=== PATIENT | male | born 1965 | race Caucasian/White ===

== ENCOUNTER → 2017-08-29 | Outpatient (CLI) | payer OTHER, BC ==
--- NOTE | 2017-08-29 15:20 | DIAGNOSTIC IMAGING REPORT ---
MRI OF THE LEFT ANKLE WITHOUT CONTRAST CLINICAL HISTORY: Persistent left ankle pain following injury. COMPARISON STUDY: None. TECHNIQUE: Utilizing a 1.5 Sherry magnet and dedicated coil, multiplanar, multiecho imaging of the left ankle was performed without intravenous or intraarticular contrast. FINDINGS: 11 of the left ankle is anatomic. There is minimal subchondral signal abnormality within the lateral talar dome. This suggests a tiny osteochondral defect which appears stable. Subchondral cystic change is noted within the talus and the calcaneus related to arthritis. The Achilles tendon and plantar fascia are intact. There is no evidence for fracture. There is no suspicious marrow replacement. There is no joint effusion or loose body. There is subtle increased signal within the posterior tibial tendon immediately distal to the medial malleolus which suggests mild tendinopathy. There is no abnormality of the extensor or peroneal tendons. There is slight increased fluid within the tendon sheath for the flexor digitorum. IMPRESSION: 1. No evidence for fracture. 2. Slight increased signal within the posterior tibial tendon which suggests minimal tendinopathy. 3. Increased fluid within the tendon sheath for the flexor digitorum which suggests tenosynovitis. 4. Subchondral cystic change within the talus and calcaneus consistent with osteoarthritis. 5. Tiny osteochondral abnormality of the lateral talar dome which suggests a tiny osteochondral defect. Electronically signed by: Jonatan Amador M.D. 08/29/2017 3:18 PM Dictated Date/Time: 08/29/2017 3:09 PM
== END | disposition home or self-care (01) ==
LOC: C.MRIBC 13:45
PROVIDERS: ATTEND Orthopaedic Surgery
DX: M25.572 Pain in left ankle and joints of left foot (principal); M67.972 Unspecified disorder of synovium and tendon, left ankle and foot

== ENCOUNTER 2021-06-04 08:38 | Inpatient (IN) ==
--- NOTE | 2021-06-04 08:44 | Emergency Department Note ---
Impression & Plan Hypoxia, Asthma, Pneumonia due to COVID-19 virus, Acute dehydration, Nausea, Hypocalcemia ED Provider Note NAME: MARCUS GA AGE: 55 SEX: M : 1965 ARRIVES VIA: Ambulance INFORMANT: Patient, ED PROVIDER(S): Stephan Merchant MD Chief Complaint: Shortness of breath HPI: Patient does complain of shortness of breath and has been symptomatic for Covid since 2 Fridays ago but tested positive last Friday. The patient had been cleared for work initially and [facility] and he was noted to be hypoxic and was referred here for further evaluation and treatment. Patient does have a known history of asthma. The patient denies any chest pains but has had associated shortness of breath nonproductive cough, nausea without vomiting and diarrhea. Patient has had decreased p.o. intake. Patient had used an inhaler at home without significant improvement in symptoms. Patient denies any abdominal pain or headache. Patient is not vaccinated for COVID-19. The patient did receive his seasonal flu shot. Patient symptoms of gotten progressively worse over these last 10 to 11 days. Patient has not felt improved with anything he is tried at home. No prior history of heart or lung disease. The patient is a non-smoker. Patient denies any history of DVT or PE. ROS: See HPI for pertinent positives and negatives. A total of 10 systems were reviewed and otherwise negative. Past medical history: See below Surgical history: See below Social history: See below Physical Exam: GENERAL: Mildly ill in appearance, NAD, wearing glasses, wearing a mask, non- toxic. EYE EXAM: Normal conjunctiva. PERRL, no anisocoria and EOM's grossly intact w/o pain. NECK: Supple, no nuchal rigidity, no adenopathy, non-tender. No signs of meningismus. LUNGS: Crackles throughout without any obvious wheezing or rhonchi, normal chest wall mechanics. HEART: Tachycardic and regular, no MRG. ABDOMEN: Abdomen soft, non-tender, normo-active bowel sounds, no masses, no rebound or guarding. BACK: No CVA TTP. SKIN: No rashes and no bruising. UPPER EXTREMITIES: Upper extremities are grossly normal. LOWER EXTREMITIES: Grossly normal, no edema. Negative Homans' sign bilaterally. NEURO EXAM: A&O x3, cranial nerves II-XII grossly intact, normal speech, moves all 4 extremities on command w/o issue. Differential diagnoses: Reactive airway disease, pneumonia, pneumothorax, COPD, CHF, infections, cardiac ischemia, pulmonary embolism, musculoskeletal, gastrointestinal, as well as other pathologies. Course: Patient was seen and evaluated the bedside. Full history physical exam was perf ormed. EKG interpreted by me Sinus tachycardia, rate of 108, normal intervals, normal axis, T wave inversion in lead III, no obvious ST elevations Imaging Studies: See Below Cardiac monitoring: An order was placed for continuous cardiac monitoring. The monitor shows a rate of 102 with tachycardic and regular rhythm. MDM: Patient was seen due to concern for shortness of breath. The patient did have crackles throughout was noted to be hypoxic. The patient was poor put on nasal cannula her dexamethasone and IV fluids given the patient's nausea diarrhea decreased p.o. intake. Blood work was obtained and a chest x-ray was completed. Chest ray shows viral type pneumonia. Blood work shows normal white count H&H and platelet count. The patient does have lymphocytopenia which be consistent with the patient's viral type illness. Patient does have creat of 1.5. Mild hypocalcemia noted. Troponin not detectable. Covid positive negative for flu and RSV. Procalcitonin is not elevated. I did speak with the on-call hospitalist Glenys Nuñez PA-C and the patient was admitted by Dr. Otero. Critical Care: I have personally spent 37 minutes of critical care time in direct management of this patient. This includes bedside care, interpretation of diagnostic studies, and testing, discussion with consultants, patient, and family members, and other require inpatient management activities. This 37 minutes is in excess of all separately billable procedures. Past Med/Surg History Medical History Asthma HTN (hypertension) Surgical History History of ear surgery History of umbilical hernia repair Family History Mother Alive and well Father Myocardial infarction 50s Social History Smoking Status: Never smoker Hx Alcohol Use: No Hx Substance Use: No Preferred Language: Macedonian marital status: Current Living Situation: Spouse and Family Feels Safe at Home: Yes Immunizations: Unvaccinated for COVID-19 Allergies Allergies Allergy/AdvReac Type Severity Reaction Status Date / Time shellfish derived Allergy Mild difficulty Verified 06/04/21 09:29 breathing Home Meds Home Medications Medication Instructions Recorded Confirmed budesonide-formoterol HFA 160 2 puffs INH BID 05/10/19 06/04/21 mcg-4.5 mcg/actuation aerosol inhaler (Symbicort) cetirizine 10 mg tablet (Zyrtec) 10 mg PO DAILY 05/10/19 06/04/21 ipratropium 20 mcg-albuterol 100 1 puffs INH Q6H 05/10/19 06/04/21 mcg/actuation mist for inhalation (Combivent Respimat) omeprazole 20 mg capsule,delayed 20 mg PO DAILY 05/10/19 06/04/21 release albuterol sulfate 90 mcg/actuation 2 puff INHALATION Q4H PRN 06/04/21 06/04/21 aerosol inhaler (ProAir HFA) atorvastatin 20 mg tablet 10 mg PO DAILY 06/04/21 06/04/21 lisinopril 40 mg tablet 40 mg PO DAILY 06/04/21 06/04/21 Results & Data (ED) Vital Signs Vital Signs - 24 hr 06/04/21 08:38 06/04/21 08:53 06/04/21 08:56 Temperature 37.5 C Temperature Source Oral Pulse Rate 110 H 107 H 110 H Pulse Rate [Radial] Pulse Rate from SpO2 Sensor 108 H Pulse Rhythm Regular Pulse Rhythm [Radial] Pulse Strength [Radial] Respiratory Rate 34 H 32 H 34 H Respiratory Effort / Characteristics Non-Labored Respiratory Depth Normal Respiratory Pattern Regular Blood Pressure 127/86 127/86 Blood Pressure [Left Arm] Blood Pressure Mean 99 99 Blood Pressure Mean [Left Arm] Pulse Oximetry 88 L 92 92 Oxygen Delivery Method Nasal Cannula Nasal Cannula Oxygen Flow Rate 0 4 Sepsis Recent Fever Within 48 Hours No Sepsis New/Unexplained Change in Mental Status No Sepsis Action Taken by Nursing Physician Notified Oxygen Flow Rate - Titration 4 Pulse Oximetry Post Tiitration 92 06/04/21 09:00 06/04/21 09:16 06/04/21 09:30 Temperature Temperature Source Pulse Rate 108 H 100 H Pulse Rate [Radial] Pulse Rate from SpO2 Sensor 109 H 98 H Pulse Rhythm Pulse Rhythm [Radial] Pulse Strength [Radial] Respiratory Rate 36 H 22 34 H Respiratory Effort / Characteristics Non-Labored Spontaneous Respiratory Depth Normal Respiratory Pattern Regular Blood Pressure Blood Pressure [Left Arm] Blood Pressure Mean Blood Pressure Mean [Left Arm] Pulse Oximetry 92 92 89 L Oxygen Delivery Method Nasal Cannula Oxygen Flow Rate 4 Sepsis Recent Fever Within 48 Hours Sepsis New/Unexplained Change in Mental Status Sepsis Action Taken by Nursing Oxygen Flow Rate - Titration Pulse Oximetry Post Tiitration 06/04/21 10:00 06/04/21 10:30 06/04/21 11:00 Temperature Temperature Source Pulse Rate 97 H 96 H Pulse Rate [Radial] 89 Pulse Rate from SpO2 Sensor 97 H 96 H Pulse Rhythm Pulse Rhythm [Radial] Regular Pulse Strength [Radial] Normal Respiratory Rate 25 H 34 H 20 Respiratory Effort / Characteristics Non-Labored Respiratory Depth Normal Respiratory Pattern Regular Blood Pressure 136/89 128/93 Blood Pressure [Left Arm] 117/82 Blood Pressure Mean 104 104 Blood Pressure Mean [Left Arm] 93 Pulse Oximetry 95 94 94 Oxygen Delivery Method Nasal Cannula Nasal Cannula Oxygen Flow Rate 4 4 Sepsis Recent Fever Within 48 Hours Sepsis New/Unexplained Change in Mental Status Sepsis Action Taken by Nursing Oxygen Flow Rate - Titration Pulse Oximetry Post Tiitration Home Medications Current Medication List: was personally reviewed by me Laboratory Data Attestation: I reviewed the patient's lab results. Result diagrams: 06/04/21 09:00 06/04/21 09:00 Lab Results 06/04/21 06/04/21 06/04/21 Range/Units 09:00 09:00 09:00 WBC 5.45 (4.8-10.8) K/uL RBC 5.14 (4.7-6.1) M/uL Hgb 16.5 (14.0-18.0) g/dL Hct 48.2 (42-52) % MCV 93.8 (80-100) fL MCH 32.1 (25-34) pg MCHC 34.2 (32-36) g/dL RDW Std Deviation 45.2 (36.4-46.3) fL RDW Coeff of Aliya 13.1 (11.5-14.5) % Plt Count 143 (130-400) K/uL MPV 10.9 H (7.4-10.4) fL Immature Gran % (Auto) 0.2 % Neut % (Auto) 73.5 % Lymph % (Auto) 13.6 % [place] % (Auto) 12.5 % Eos % (Auto) 0.0 % Baso % (Auto) 0.2 % Neut # (Auto) 4.01 (1.4-6.5) K/uL Lymph # (Auto) 0.74 L (1.2-3.4) K/uL [place] # (Auto) 0.68 H (0.11-0.59) K/uL Eos # (Auto) 0.00 (0-0.5) K/uL Baso # (Auto) 0.01 (0-0.2) K/uL Immature Gran # (Auto) 0.01 (0.00-0.02) K/uL ESR (0-20) mm/hr Sodium 142 (136-145) mmol/L Potassium 3.7 (3.5-5.1) mmol/L Chloride 111 H (98-107) mmol/L Carbon Dioxide 23 (21-32) mmol/L Anion Gap 7.0 (3-11) BUN 21 H (7-18) mg/dl Creatinine 1.53 H (0.6-1.4) mg/dl Est Cr Clr Drug Dosing 71.0 ml/min Est GFR ( Amer) 58.9 ml/min Est GFR (Non-Af Amer) 50.8 ml/min BUN/Creatinine Ratio 13.5 (10-20) Glucose 118 H (70-99) mg/dl Calcium 8.0 L (8.5-10.1) mg/dl Total Bilirubin 0.5 (0.2-1) mg/dl AST 47 H (15-37) U/L ALT 32 (12-78) Alkaline Phosphatase 70 (45-117) U/L Troponin I < 0.015 (0-0.045) ng/ml C-Reactive Protein (0-0.29) mg/dl NT-Pro-B Natriuret Pep 37 (0-900) pg/ml Total Protein 7.2 (6.4-8.2) gm/dl Albumin 3.1 L (3.4-5.0) gm/dl Globulin 4.1 H (2.5-4.0) gm/dl Albumin/Globulin Ratio 0.8 L (0.9-2) Procalcitonin (0-0.5) ng/ml SARS-CoV-2 (PCR) POSITIVE A* (Negative) Influenza Type A (PCR) Negative (Neg) Influenza Type B (PCR) Negative (Neg) RSV (RT-PCR) Negative (Neg) 06/04/21 06/04/21 06/04/21 Range/Units 09:00 09:00 09:00 WBC (4.8-10.8) K/uL RBC (4.7-6.1) M/uL Hgb (14.0-18.0) g/dL Hct (42-52) % MCV (80-100) fL MCH (25-34) pg MCHC (32-36) g/dL RDW Std Deviation (36.4-46.3) fL RDW Coeff of Aliya (11.5-14.5) % Plt Count (130-400) K/uL MPV (7.4-10.4) fL Immature Gran % (Auto) % Neut % (Auto) % Lymph % (Auto) % Flag[place] % (Auto) % Eos % (Auto) % Baso % (Auto) % Neut # (Auto) (1.4-6.5) K/uL Lymph # (Auto) (1.2-3.4) K/uL [place]ler # (Auto) (0.11-0.59) K/uL Eos # (Auto) (0-0.5) K/uL Baso # (Auto) (0-0.2) K/uL Immature Gran # (Auto) (0.00-0.02) K/uL ESR 38 H (0-20) mm/hr Sodium (136-145) mmol/L Potassium (3.5-5.1) mmol/L Chloride (98-107) mmol/L Carbon Dioxide (21-32) mmol/L Anion Gap (3-11) BUN (7-18) mg/dl Creatinine (0.6-1.4) mg/dl Est Cr Clr Drug Dosing ml/min Est GFR ( Amer) ml/min Est GFR (Non-Af Amer) ml/min BUN/Creatinine Ratio (10-20) Glucose (70-99) mg/dl Calcium (8.5-10.1) mg/dl Total Bilirubin (0.2-1) mg/dl AST (15-37) U/L ALT (12-78) Alkaline Phosphatase (45-117) U/L Troponin I (0-0.045) ng/ml C-Reactive Protein 8.03 H (0-0.29) mg/dl NT-Pro-B Natriuret Pep (0-900) pg/ml Total Protein (6.4-8.2) gm/dl Albumin (3.4-5.0) gm/dl Globulin (2.5-4.0) gm/dl Albumin/Globulin Ratio (0.9-2) Procalcitonin 0.07 (0-0.5) ng/ml SARS-CoV-2 (PCR) (Negative) Influenza Type A (PCR) (Neg) Influenza Type B (PCR) (Neg) RSV (RT-PCR) (Neg) Administered Medications Discontinued Medications Dexamethasone Sodium Phosphate (DexamethasonePf 10 Mg/Ml Vial) 6 mg IV NOW ONE Stop: 06/04/21 08:57 Last Admin: 06/04/21 09:07 Dose: 6 mg Documented by: [id number] Sodium Chloride (Nss 1000ml) 1,000 mls @ 999 mls/hr IV .Q1H1M ALVINO Stop: 06/04/21 10:00 Last Infusion: 06/04/21 10:37 Dose: 0 mls/hr Documented by: [id number] Admin: 06/04/21 09:05 Dose: 999 mls/hr Documented by: [id number] Ondansetron HCl (Ondansetron Inj 2 Mg/Ml 2 Ml Vial) 4 mg IV NOW STA Stop: 06/04/21 08:58 Last Admin: 06/04/21 09:05 Dose: 4 mg Documented by: [id number] Imaging Data Radiologist's Impression: Chest X-Ray 06/04/21 08:56 XR chest 1V portable CLINICAL HISTORY: Dyspnea. COMPARISON STUDY: No previous studies for comparison. FINDINGS: Lung volumes are normal. There is no pneumothorax or pleural effusion. Moderate multifocal airspace opacities within the lungs are noted. There is bor derline enlargement of the cardiac silhouette. There is no evidence for pulmonary edema. IMPRESSION: Moderate multifocal bilateral airspace opacities suggestive of viral pneumonia. Radiographic follow-up to ensure resolution is recommended. ACT 112: Negative or not required by law. Electronically signed by: Jonatan Amador M.D. 06/04/2021 9:38 AM Discharge Plan Visit Data Chief Complaint: Shortness of Breath/Dyspnea ED Provider: Stephan Merchant Discharge Problem: Hypoxia, Asthma, Pneumonia due to COVID-19 virus, Acute dehydration, Nausea, H ypocalcemia Patient Disposition: Admitted As Inpatient Forms Stand Alone Forms: [facility] Prescriptions Prescriptions: No Action omeprazole 20 mg capsule,delayed release(DR/EC) 20 mg PO DAILY RF: 0 Symbicort 160-4.5 mcg/actuation HFA aerosol inhaler 2 puffs INH BID RF: 0 Combivent Respimat 20-100 mcg/actuation mist 1 puffs INH Q6H RF: 0 cetirizine [Zyrtec] 10 mg tablet 10 mg PO DAILY RF: 0 albuterol sulfate [ProAir HFA] 90 mcg/actuation HFA aerosol inhaler 2 puff INHALATION Q4H PRN (Reason: Shortness Of Breath) RF: 0 lisinopril 40 mg tablet 40 mg PO DAILY RF: 0 atorvastatin 20 mg tablet 10 mg PO DAILY RF: 0 Referrals Referrals: Tang Rivera MD [Outside Practitioners] -
[2021-06-04] MEDS ORDERED: dexAMETHasone**PF** 10 MG/ML VIAL IV ONE (08:56)
[2021-06-04] MEDS ORDERED: ONDANSETRON INJ 2 MG/ML 2 ML VIAL IV STA (08:57)
[2021-06-04] MEDS ORDERED: SODIUM CHLORIDE 0.9% 1000ML 1,000 ML IV SCH ×2 (09:00→15:30)
[2021-06-04 09:33] LABS: Hematocrit (blood only) 48.2 % (42-52); Hemoglobin 16.5 g/dL (14.0-18.0); Mean Corpuscular Hemoglobin 32.1 pg (25-34); Mean Corpuscular Hgb Conc 34.2 g/dL (32-36); Mean Corpuscular Volume 93.8 fL (80-100); Mean Platelet Volume 10.9 fL (7.4-10.4); Platelet Count 143 K/uL (130-400); RDW Coefficient of Variation 13.1 % (11.5-14.5); RDW Standard Deviation 45.2 fL (36.4-46.3); Red Blood Count 5.14 M/uL (4.7-6.1); White Blood Count 5.45 K/uL (4.8-10.8)
--- NOTE | 2021-06-04 09:40 | XRay Report ---
XR chest 1V portable CLINICAL HISTORY: Dyspnea. COMPARISON STUDY: No previous studies for comparison. FINDINGS: Lung volumes are normal. There is no pneumothorax or pleural effusion. Moderate multifocal airspace opacities within the lungs are noted. There is borderline enlargement of the cardiac silhoue tte. There is no evidence for pulmonary edema. IMPRESSION: Moderate multifocal bilateral airspace opacities suggestive of viral pneumonia. Radiogra [facility] follow-up to ensure resolution is recommended. ACT 112: Negative or not required by law. Electronically signed by: Jonatan Amador M.D. 06/04/2021 9:38 AM
[2021-06-04 09:55] LABS: Alanine Aminotransferase 32 (12-78); Albumin Level 3.1 gm/dl (3.4-5.0); Aspartate Aminotransferase 47 U/L (15-37); BUN Creatinine Ratio 13.5 (10-20); Blood Urea Nitrogen 21 mg/dl (7-18); Carbon Dioxide 23 mmol/L (21-32); Chloride 111 mmol/L (98-107); Est GFR (African American) 58.9 ml/min; Est GFR (Non-African American) 50.8 ml/min; Glucose 118 mg/dl (70-99); Potassium 3.7 mmol/L (3.5-5.1); Sodium 142 mmol/L (136-145)
[2021-06-04 09:57] LABS: Basophils # (auto) 0.01 K/uL (0-0.2); Basophils % (auto) 0.2 %; Immature Granulocytes # (auto) 0.01 K/uL (0.00-0.02); Immature Granulocytes % (auto) 0.2 %; Lymphocytes # (auto) 0.74 K/uL (1.2-3.4); Lymphocytes % (auto) 13.6 %; Monocytes # (auto) 0.68 K/uL (0.11-0.59); Monocytes % (auto) 12.5 %; Neutrophils # (auto) 4.01 K/uL (1.4-6.5); Neutrophils % (auto) 73.5 %
[2021-06-04 10:00] LABS: Albumin Globulin Ratio 0.8 (0.9-2); Alkaline Phosphatase 70 U/L (45-117); Bilirubin,Total 0.5 mg/dl (0.2-1); Globulin 4.1 gm/dl (2.5-4.0); NT Pro B Type Natriuretic Pept 37 pg/ml (0-900); Total Protein 7.2 gm/dl (6.4-8.2); Troponin I < 0.015 ng/ml (0-0.045)
[2021-06-04 10:15] LABS: Influenza A virus by PCR Negative (Neg); Influenza B virus by PCR Negative (Neg); RSV by PCR Negative (Neg)
[2021-06-04 10:19] LABS: SARS CoV2 RNA(COVID-19) InHosp POSITIVE (Negative)
--- NOTE | 2021-06-04 11:03 | History & Physical Report ---
Date of Service June 04, 2021 Assessment & Plan (1) Hypoxia: (2) Pneumonia due to COVID-19 virus: (3) Asthma: (4) HTN (hypertension): Plan: Hypoxia Pneumonia due to COVID-19 Admit to PCU IV dexamethasone 6mg Daily Lovenox SQ BID aggressive pulmonary toilet with ISP, flutter valve, Albuterol MDI encouraged self proning and q2h position change no acute asthma exac continue symbicort CRP 8.03, ESR 38, procalcitonin pending He does not meet criteria for remdesivir secondary to duration of symptoms JOCY Unknown baseline, but elevated creatinine 1.53 Likely in setting of poor intake Received 1 hour IV fluid in ED, give additional 1 L gentle Repeat labs in a.m. HTN Hold lisinopril in setting of Resume as able DVT prophylaxis: Lovenox twice daily Dispo: PCU Full code PCP: [place] patient Patient was seen and examined in collaboration with,Dr. Otero, please see addendum History of Present Illness Chief Complaint: Worsening SOB; found to be hypoxic and sent to ED. Primary Care Provider: Elian Truong MD This is a 55-year-old male with significant past medical history of asthma and hypertension who presents to ED secondary to worsening shortness of breath over the last several days and found to be hypoxic at work. Patient initially was diagnosed with Covid 1 week ago. His symptoms however started 12 days ago. He is currently complaining of productive cough of purulent sputum, chills, sweats, shortness of breath, difficulty taking a deep breath, CINTRON, nausea, daily diarrhea and poor intake. He has known sick contacts with family members at home. He is unvaccinated. He denies fever, lightheadedness, dizziness, syncope, chest pain, hemoptysis, emesis, abdominal pain, dysuria, increased urinary frequency with urination, melena or hematochezia. He was to return to work today as his quarantine ended, and when he returned to work he was complaining of shortness of breath, his oxygen level was obtained and found to be hypoxic. He was referred to ED. In ED patient was hypoxic requiring 4 L of oxygen via nasal cannula.His chest x-ray was consistent with moderate multifocal bilateral airspace opacities suggestive of viral pneumonia. His lab work was consistent with JOCY and elevation in creatinine of 1.53. He did receive 6 mg IV dexamethasone as well as 1 L of IV fluid. He currently feels improved since initial presentation; however, is dyspneic even with conversation. Allergies Allergy/AdvReac Type Severity Reaction Status Date / Time shellfish derived Allergy Mild difficulty Verified 06/04/21 09:29 breathing Home Medications Medication Instructions Recorded Confirmed Type budesonide-formoterol HFA 160 2 puffs INH BID 05/10/19 06/04/21 History mcg-4.5 mcg/actuation aerosol inhaler (Symbicort) cetirizine 10 mg tablet (Zyrtec) 10 mg PO DAILY 05/10/19 06/04/21 History ipratropium 20 mcg-albuterol 100 1 puffs INH Q6H 05/10/19 06/04/21 History mcg/actuation mist for inhalation (Combivent Respimat) omeprazole 20 mg capsule,delayed 20 mg PO DAILY 05/10/19 06/04/21 History release albuterol sulfate 90 mcg/actuation 2 puff INHALATION Q4H PRN 06/04/21 06/04/21 History aerosol inhaler (ProAir HFA) atorvastatin 20 mg tablet 10 mg PO DAILY 06/04/21 06/04/21 History lisinopril 40 mg tablet 40 mg PO DAILY 06/04/21 06/04/21 History codeine 10 mg-guaifenesin 100 mg/5 10 ml PO Q6H PRN #120 ml 06/08/21 Rx mL oral liquid Past Med/Surg History Medical History Asthma HTN (hypertension) Surgical History History of ear surgery History of umbilical hernia repair Family History Mother Alive and well Father Myocardial infarction 50s Social History Smoking Status: Never smoker Second Hand Exposure: No; Do You Dip or Chew Tobacco: No; Hx Alcohol Use: No Hx Substance Use: No Preferred Language: Nepali Communication Ability: Effective [employer]alt [employer] Supervisor Required: No Beliefs That Will Affect Care: None marital status: Current Living Situation: Family Other Information That Helps Us Care for You: No Feels Safe at Home: Yes Safety Concerns: Feels Safe At This Time Assistive Devices: Oxygen - Continuous Review of Systems Review of Systems: All systems reviewed & are unremarkable except as noted in HPI & below Physical Exam Physical Exam: Constitutional: WD/WN, vitals as above, NAD, sitting up in bed, pleasant, dyspneic with conversation Head: Normocephalic, Atraumatic Eyes: PERRL, conjunctivae normal, anicteric sclerae ENMT: external ear and nose normal, oropharynx normal Neck: trachea midline, no thyromegaly normal visual inspection Respiratory: normal respiratory effort, no accessory muscle use, 4 years O2 via nasal cannula, harsh cough noted, dyspneic with conversation Cardiovascular: RRR telemetry, no edema Vessels: no JVD or carotid bruit Chest: normal inspection of chest Abdomen: normal bowel sounds, soft, nontender, no hepatosplenomegaly Musculoskeletal: no cyanosis or clubbing, extremities motor strength 5/5 Skin: no rashes, warm and dry normal turgor Neurologic: PERRL, EOMI, accommodation nl, no face palsy, no dysarthria CN's II-XI intact bilaterally and moves all extremities Psychiatric: A+Ox3, euthymic affect Lymphatic: no cervical or axillary lymphadenopathy : deferred Results & Data Results & Data ([facility]) Vital Signs (Past 12 Hours) Vital Signs Temp Pulse Resp BP Pulse Ox 06/04/21 10:30 96 H 34 H 128/93 94 06/04/21 10:00 97 H 25 H 136/89 95 06/04/21 09:30 100 H 34 H 89 L 06/04/21 09:16 22 92 06/04/21 09:00 108 H 36 H 92 06/04/21 08:56 110 H 34 H 92 06/04/21 08:53 107 H 32 H 127/86 92 06/04/21 08:38 37.5 C 110 H 34 H 127/86 88 L Diagnostic Findings Chest X-Ray 06/04/21 08:56 XR chest 1V portable CLINICAL HISTORY: Dyspnea. COMPARISON STUDY: No previous studies for comparison. FINDINGS: Lung volumes are normal. There is no pneumothorax or pleural effusion. Moderate multifocal airspace opacities within the lungs are noted. There is borderline enlargement of the cardiac silhouette. There is no evidence for pulmonary edema. IMPRESSION: Moderate multifocal bilateral airspace opacities suggestive of viral pneumonia. Radiographic follow-up to ensure resolution is recommended. ACT 112: Negative or not required by law. Electronically signed by: Jonatan Amador M.D. 06/04/2021 9:38 AM Medications Administered Medication List Discontinued Medications Dexamethasone Sodium Phosphate (DexamethasonePf 10 Mg/Ml Vial) 6 mg IV NOW ONE Stop: 06/04/21 08:57 Last Admin: 06/04/21 09:07 Dose: 6 mg Documented by: [id number] Sodium Chloride (Nss 1000ml) 1,000 mls @ 999 mls/hr IV .Q1H1M ALVINO Stop: 06/04/21 10:00 Last Infusion: 06/04/21 10:37 Dose: 0 mls/hr Documented by: [id number] Admin: 06/04/21 09:05 Dose: 999 mls/hr Documented by: [id number] Ondansetron HCl (Ondansetron Inj 2 Mg/Ml 2 Ml Vial) 4 mg IV NOW STA Stop: 06/04/21 08:58 Last Admin: 06/04/21 09:05 Dose: 4 mg Documented by: [id number] ECG Rate (beats per minute): 108 Rhythm: sinus tachycardia Findings: + PAC COVID-19 Results Results COVID-19 Adm Lab Results: RBC 4.74 M/uL (4.7-6.1) 06/07/21 WBC 12.66 K/uL (4.8-10.8) H 06/07/21 Hgb 15.0 g/dL (14.0-18.0) 06/07/21 Hct 44.4 % (42-52) 06/07/21 Plt Count 231 K/uL (130-400) 06/07/21 Neutrophils (%) (Auto) 74.6 % 06/05/21 Lymphocytes (%) (Auto) 13.8 % 06/05/21 Monocytes # (Auto) 0.79 K/uL (0.11-0.59) H 06/05/21 Eosinophils # (Auto) 0.00 K/uL (0-0.5) 06/05/21 Immature Granulocyte % (Auto) 0.6 % 06/05/21 Neutrophils # (Auto) 5.42 K/uL (1.4-6.5) 06/05/21 Lymphocytes # (Auto) 1.00 K/uL (1.2-3.4) L 06/05/21 Monocytes # (Auto) 0.79 K/uL (0.11-0.59) H 06/05/21 Eosinophils # (Auto) 0.00 K/uL (0-0.5) 06/05/21 Basophils # (Auto) 0.01 K/uL (0-0.2) 06/05/21 Immature Granulocyte # (Auto) 0.04 K/uL (0.00-0.02) H 06/05/21 Na 143 mmol/L (136-145) 06/08/21 K 3.9 mmol/L (3.5-5.1) 06/08/21 Cl 108 mmol/L (98-107) H 06/08/21 CO2 30 mmol/L (21-32) 06/08/21 Anion Gap 4.0 (3-11) 06/08/21 BUN 19 mg/dl (7-18) H 06/08/21 Creatinine 1.06 mg/dl (0.6-1.4) 06/08/21 BUN/Creatinine Ratio 18.3 (10-20) 06/08/21 Glucose Level 108 mg/dl (70-99) H 06/08/21 Ca 8.1 mg/dl (8.5-10.1) L 06/08/21 Phosphorus Level 3.1 mg/dl (2.5-4.9) 06/07/21 Total Bilirubin 0.5 mg/dl (0.2-1) 06/05/21 AST/SGOT 41 U/L (15-37) H 06/05/21 ALT/SGPT 29 (12-78) 06/05/21 Alkaline Phosphatase 62 U/L (45-117) 06/05/21 Total Protein 6.4 gm/dl (6.4-8.2) 06/05/21 Albumin 2.6 gm/dl (3.4-5.0) L 06/05/21 Globulin 3.8 gm/dl (2.5-4.0) 06/05/21 Albumin/Globulin Ratio 0.7 (0.9-2) L 06/05/21 Troponin I < 0.015 ng/ml (0-0.045) 06/04/21 OJ-Xuk-T-Type Natriuretic Pep 37 pg/ml (0-900) 06/04/21 CRP 6.30 mg/dl (0-0.29) H 06/07/21 Procalcitonin 0.05 ng/ml (0-0.5) 06/05/21 Ferritin 760.5 ng/ml (8-388) H 06/06/21 COVID-19 PCR POSITIVE (Negative) A* 06/04/21 Influenza Virus Type A (PCR) Negative (Neg) 06/04/21 Influenza Virus Type B (PCR) Negative (Neg) 06/04/21 Chest X-Ray 06/04/21 Code Status & VTE Plan Code Status FULL CODE Supervising Physician Co-Signing Physician Notes Pt was seen and examined. Agreed with Glenys exam, assessment and plan. 55-year-old male with significant past medical history of asthma and hypertension who presents to ED secondary to worsening shortness of breath and hypoxia. Pt said that Pt said that symptoms started about 12 days ago and she was testing positive for COVID 19 about 1 week ago. He is currently complaining of productive cough of purulent sputum, chills, sweats, shortness of breath, difficulty taking a deep breath, CINTRON, nausea, daily diarrhea and poor intake. Currently on 4 L of oxygen via nasal cannula.His chest x-ray was consistent with moderate multifocal bilateral airspace opacities suggestive of viral pneumonia. Lab work showed elevating creatinine at 1.53. Continue dexamethasone and IVF. Not a candidate for remdesivir due to duration of symptoms. Discussed with pt about self proning. Will monitor BMP. Continue monitor closely. MD Shanna
[2021-06-04] MEDS ORDERED: POLYETHYLENE (MIRALAX) 17 GM PACK PO PRN (13:38)
[2021-06-04] MEDS ORDERED: ONDANSETRON INJ 2 MG/ML 2 ML VIAL IV PRN (13:38)
[2021-06-04] MEDS ORDERED: ALUMINUM/MAGNESIUM SUSP 30 ML UDC PO PRN (13:38)
[2021-06-04] MEDS ORDERED: MAGNESIUM HYDROXIDE SUSP 30 ML UDC PO PRN (13:38)
[2021-06-04] MEDS ORDERED: ACETAMINOPHEN 325 MG TAB PO PRN (13:38)
[2021-06-04] MEDS ORDERED: ALBUTEROL HFA 8 GM INHALER INH PRN (13:51)
[2021-06-04] MEDS: ALBUTEROL HFA 8 GM INHALER INH SCH ×2 (15:46→18:17)
[2021-06-04] MEDS: ENOXAPARIN INJ 40 MG/0.4 ML SYR SQ SCH (15:56)
[2021-06-04] MEDS: BENZONATATE 100 MG CAPSULE PO SCH ×2 (15:58→20:35)
[2021-06-05] MEDS: ENOXAPARIN INJ 40 MG/0.4 ML SYR SQ SCH ×2 (04:12→16:18)
[2021-06-05] MEDS: ALBUTEROL HFA 8 GM INHALER INH SCH ×4 (07:25→19:11)
[2021-06-05 07:40] LABS: Basophils # (auto) 0.01 K/uL (0-0.2); Basophils % (auto) 0.1 %; Hematocrit (blood only) 45.3 % (42-52); Hemoglobin 15.3 g/dL (14.0-18.0); Immature Granulocytes # (auto) 0.04 K/uL (0.00-0.02); Immature Granulocytes % (auto) 0.6 %; Lymphocytes % (auto) 13.8 %; Mean Corpuscular Hemoglobin 31.9 pg (25-34); Mean Corpuscular Hgb Conc 33.8 g/dL (32-36); Mean Corpuscular Volume 94.6 fL (80-100); Mean Platelet Volume 10.5 fL (7.4-10.4); Monocytes # (auto) 0.79 K/uL (0.11-0.59); Monocytes % (auto) 10.9 %; Neutrophils # (auto) 5.42 K/uL (1.4-6.5); Neutrophils % (auto) 74.6 %; Platelet Count 196 K/uL (130-400); RDW Standard Deviation 45.2 fL (36.4-46.3); Red Blood Count 4.79 M/uL (4.7-6.1); White Blood Count 7.26 K/uL (4.8-10.8)
[2021-06-05] MEDS: FLUTICASONE/VILANTEROL 200/25MCG 14 PUFFS/INHALER INH SCH (07:49)
[2021-06-05] MEDS: dexAMETHasone 6 MG in SYRINGE 0 ML IV SCH (07:49)
[2021-06-05] MEDS: PANTOprazole 40 MG TAB PO SCH (07:50)
[2021-06-05] MEDS: CETIRIZINE HCL 10 MG TABLET PO SCH (07:50)
[2021-06-05] MEDS: ATORVASTATIN 10 MG TAB PO SCH (07:50)
[2021-06-05] MEDS: BENZONATATE 100 MG CAPSULE PO SCH ×3 (07:50→20:06)
[2021-06-05 09:41] LABS: Albumin Level 2.6 gm/dl (3.4-5.0); Calcium 7.7 mg/dl (8.5-10.1); Creatinine Clr Calc Pharmacy 93.6 ml/min; Est GFR (African American) 81.4 ml/min; Est GFR (Non-African American) 70.3 ml/min; Potassium 4.1 mmol/L (3.5-5.1)
[2021-06-05 09:44] LABS: Albumin Globulin Ratio 0.7 (0.9-2); Bilirubin,Total 0.5 mg/dl (0.2-1); Globulin 3.8 gm/dl (2.5-4.0); Total Protein 6.4 gm/dl (6.4-8.2)
--- NOTE | 2021-06-05 22:18 | Hospitalist Progress Note ---
Date of Service June 05, 2021 Assessment & Plan (1) Hypoxia: (2) Pneumonia due to COVID-19 virus: (3) Asthma: (4) HTN (hypertension): Plan: Pneumonia due to COVID-19 Acute respiratory failure with hypoxia in setting of COVID19 pneumonia Present on admission with worsening shortness of breath His symptom has been going on for almost 2 weeks and was tested positive for COVID-19 about a week ago Unvaccinated for COVID-19 Chest x-ray showed moderate multifocal bilateral airspace opacities suggestive of viral pneumonia. Continue IV dexamethasone 6 mg daily He does not meet criteria for remdesivir secondary to duration of symptoms Continue oxygen supplement If oxygen requirement worsening, might consider to get a CTA with PE protocol Procalcitonin normal Monitor inflammatory marker such as CRP, ESR, and ferritin Aggressive pulmonary toilet with ISP, flutter valve, Albuterol MDI Continue encouraged self proning JOCY Unknown baseline, but elevated creatinine 1.53 Mostly due to poor oral intake Received IV fluid Creatinine improved to 1.17 Continue monitor BMP HTN BP stable Continue to hold hold lisinopril in setting of elevated creatinine We will consider to resume in a.m. DVT prophylaxis: Lovenox twice daily Dispo: PCU Full code PCP: [place] patient Admission and Anticipated Discharge Date Admission Date: June 04, 2021 Subjective Patient was seen and examined for follow-up of nurse of breath due to COVID-19 Lying in bed with no acute distress He said that he has been walking in his room Patient said that his breathing feels much better today compared to yesterday He is very anxious to be discharged before the holiday. Denies any chest pain, palpitation, dizziness, and fever. Review of Systems Review of Systems: All systems reviewed & are unremarkable except as noted in Subjective Physical Exam Physical Exam: General- No acute distress Head- atraumatic Eyes- PERRL, EOMI, ENT- oropharynx clear Neck- supple, no JVD Lungs- clear to auscultation Heart- regular rhythm; no murmur Abdomen- normal bowel sounds, soft, nontender Extremities- no calf tenderness Neuro- alert, oriented x 3; PERRL, EOMI; no facial palsy; no dysarthria Skin- warm & dry Results & Data Results & Data ([facility]) Vital Signs (Past 12 Hours) Vital Signs Temp Pulse Resp BP Pulse Ox 06/05/21 19:16 78 15 88 L 06/05/21 15:52 36.4 C L 75 23 109/72 89 L 06/05/21 15:12 78 18 90 06/05/21 11:38 36.6 C 85 20 112/76 93 (1) Asthma Asthma complication type: unspecified Asthma persistence: unspecified Asthma severity: moderate Qualified Code(s): J45.909 - Unspecified asthma, uncomplicated
[2021-06-06] MEDS: ENOXAPARIN INJ 40 MG/0.4 ML SYR SQ SCH ×2 (03:56→17:10)
--- NOTE | 2021-06-06 06:15 | Electrocardiogram Report ---
Test Reason : Blood Pressure : / mmHG Vent. Rate : 108 BPM Atrial Rate : 108 BPM P-R Int : 148 ms QRS Dur : 082 ms QT Int : 318 ms P-R-T Axes : 031 034 027 degrees QTc Int : 426 ms Sinus tachycardia with Premature atrial complexes Otherwise normal ECG No previous ECGs available Confirmed by Perry Alvarez ([id number]) on 06/06/2021 6:14:29 AM Referred By: REFERRED SELF Confirmed By:Perry Alvarez
[2021-06-06] MEDS: ATORVASTATIN 10 MG TAB PO SCH (08:15)
[2021-06-06] MEDS: BENZONATATE 100 MG CAPSULE PO SCH ×3 (08:15→20:00)
[2021-06-06] MEDS: PANTOprazole 40 MG TAB PO SCH (08:16)
[2021-06-06] MEDS: CETIRIZINE HCL 10 MG TABLET PO SCH (08:16)
[2021-06-06] MEDS: FLUTICASONE/VILANTEROL 200/25MCG 14 PUFFS/INHALER INH SCH (08:16)
[2021-06-06] MEDS: dexAMETHasone 6 MG in SYRINGE 0 ML IV SCH (08:18)
[2021-06-06] MEDS: ALBUTEROL HFA 8 GM INHALER INH SCH ×4 (08:27→19:18)
[2021-06-06 08:53] LABS: BUN Creatinine Ratio 17.9 (10-20); C Reactive Protein 3.66 mg/dl (0-0.29); Creatinine Clr Calc Pharmacy 107.5 ml/min; Potassium 3.9 mmol/L (3.5-5.1)
[2021-06-06 08:58] LABS: Ferritin 760.5 ng/ml (8-388)
[2021-06-06 14:38] LABS: Magnesium 2.1 mg/dl (1.8-2.4); Phosphorus 2.2 mg/dl (2.5-4.9)
--- NOTE | 2021-06-06 15:40 | Hospitalist Progress Note ---
Date of Service June 06, 2021 Assessment & Plan (1) Hypoxia: (2) Pneumonia due to COVID-19 virus: (3) Asthma: (4) HTN (hypertension): Plan: Pneumonia due to COVID-19 Acute respiratory failure with hypoxia in setting of COVID19 pneumonia Present on admission with worsening shortness of breath His symptom has been going on for almost 2 weeks and was tested positive for COVID-19 about a week prior to presentation Unvaccinated for COVID-19 Chest x-ray showed moderate multifocal bilateral airspace opacities suggestive of viral pneumonia. Continue IV dexamethasone 6 mg daily He does not meet criteria for remdesivir secondary to duration of symptoms Continue oxygen supplement Wean as tolerated. Oxygen nasal cannula reduced to 5 L/min saturating 93 to 94%. Continue incentive spirometry and flutter. Educated on self proning Tele overnight noted 4beat NSVT around 6am Hypophosphatemic today. Replete and monitor JOCY Unknown baseline, but elevated creatinine 1.53 Mostly due to poor oral intake Received IV fluid Creatinine improved to 1.03 Continue monitor BMP HTN BP stable Continue to hold lisinopril as BP is stable for now Plan to resume later DVT prophylaxis: Lovenox twice daily Dispo: PCU Full code PCP: [place] patient Admission and Anticipated Discharge Date Admission Date: June 04, 2021 Subjective 55-year-old male with significant past medical history of asthma and hypertension who presents to ED secondary to worsening shortness of breath Being managed for acute hypoxic respiratory failure due to COVID-19 pneumonia. Patient seen and examined today. Reports feeling better today. Still has cough which is improving. Reports shortness of breath is resolved at this time. Denies any chest pain, palpitations. Denies any nausea, vomiting, abdominal pain, diarrhea. Denies any dysuria, frequency, urgency Physical Exam Constitutional: + well hydrated; no acute distress Eyes: PERRL, conjunctivae normal, anicteric sclerae ENMT: external ear and nose normal, oropharynx normal Respiratory: Diminished l breath sounds, on 7 L/min nasal cannula Cardiovascular: Rate/Rhythm: regular rate and regular rhythm S1-S2 Gastrointestinal (Abdomen): normal bowel sounds, soft, nontender, no hepatosplenomegaly Musculoskeletal: no cyanosis or clubbing, extremities motor strength 5/5 Neurologic: PERRL, EOMI, accommodation nl, no face palsy, no dysarthria Psychiatric: A+Ox3, euthymic affect Results & Data Results & Data ([facility]) Vital Signs (Past 12 Hours) Vital Signs Temp Pulse Pulse Resp BP Pulse Ox Pulse Ox 06/06/21 15:10 89 06/06/21 13:56 91 H 20 98 06/06/21 13:00 92 06/06/21 11:13 36.5 C 97 H 19 126/78 90 06/06/21 10:29 86 20 94 06/06/21 10:00 87 06/06/21 08:30 74 18 89 L 06/06/21 07:21 36.7 C 91 H 18 124/79 90 Laboratory Results Abnormal lab results 06/06/21 06/06/21 06/06/21 Range/Units 07:24 07:24 07:24 ESR 35 H (0-20) mm/hr Chloride 110 H (98-107) mmol/L Glucose 115 H (70-99) mg/dl Calcium 8.0 L (8.5-10.1) mg/dl Phosphorus 2.2 L (2.5-4.9) mg/dl Ferritin 760.5 H (8-388) ng/ml C-Reactive Protein 3.66 H (0-0.29) mg/dl (1) Asthma Asthma complication type: unspecified Asthma persistence: unspecified Asthma severity: moderate Qualified Code(s): J45.909 - Unspecified asthma, uncomplicated
[2021-06-06] MEDS: POT PHOSPHATE MONOBASIC W/ SOD TAB PO SCH ×2 (18:00→20:00)
[2021-06-07] MEDS: ENOXAPARIN INJ 40 MG/0.4 ML SYR SQ SCH ×2 (03:13→16:06)
[2021-06-07 07:23] LABS: Hematocrit (blood only) 44.4 % (42-52); Mean Corpuscular Hemoglobin 31.6 pg (25-34); Mean Corpuscular Hgb Conc 33.8 g/dL (32-36); Mean Corpuscular Volume 93.7 fL (80-100); Mean Platelet Volume 10.4 fL (7.4-10.4); Platelet Count 231 K/uL (130-400); RDW Coefficient of Variation 12.7 % (11.5-14.5); RDW Standard Deviation 43.9 fL (36.4-46.3); Red Blood Count 4.74 M/uL (4.7-6.1); White Blood Count 12.66 K/uL (4.8-10.8)
[2021-06-07] MEDS: ALBUTEROL HFA 8 GM INHALER INH SCH ×4 (07:57→19:09)
[2021-06-07 08:02] LABS: BUN Creatinine Ratio 18.4 (10-20); Calcium 8.2 mg/dl (8.5-10.1); Est GFR (African American) 100.9 ml/min; Est GFR (Non-African American) 87.1 ml/min; Magnesium 2.6 mg/dl (1.8-2.4); Potassium 3.9 mmol/L (3.5-5.1)
[2021-06-07 08:07] LABS: C Reactive Protein 6.3 mg/dl (0-0.29); Phosphorus 3.1 mg/dl (2.5-4.9)
[2021-06-07] MEDS: dexAMETHasone 6 MG in SYRINGE 0 ML IV SCH (09:00)
[2021-06-07] MEDS: PANTOprazole 40 MG TAB PO SCH (09:01)
[2021-06-07] MEDS: ATORVASTATIN 10 MG TAB PO SCH (09:01)
[2021-06-07] MEDS: BENZONATATE 100 MG CAPSULE PO SCH ×3 (09:02→21:53)
[2021-06-07] MEDS: POT PHOSPHATE MONOBASIC W/ SOD TAB PO SCH ×2 (09:02→13:24)
[2021-06-07] MEDS: FLUTICASONE/VILANTEROL 200/25MCG 14 PUFFS/INHALER INH SCH (09:02)
[2021-06-07] MEDS: CETIRIZINE HCL 10 MG TABLET PO SCH (09:02)
--- NOTE | 2021-06-07 13:08 | Hospitalist Progress Note ---
Date of Service June 07, 2021 Assessment & Plan (1) Hypoxia: (2) Pneumonia due to COVID-19 virus: (3) Asthma: (4) HTN (hypertension): Plan: Pneumonia due to COVID-19 Acute respiratory failure with hypoxia in setting of COVID19 pneumonia Present on admission with worsening shortness of breath His symptom has been going on for almost 2 weeks and was tested positive for COVID-19 about a week prior to presentation Unvaccinated for COVID-19 Chest x-ray showed moderate multifocal bilateral airspace opacities suggestive of viral pneumonia. Continue IV dexamethasone 6 mg daily He does not meet criteria for remdesivir secondary to duration of symptoms Continue oxygen supplement Wean as tolerated. Oxygen nasal cannula at 4l/min Continue incentive spirometry and flutter. continue self proning Get 2 step. Likely dc in AM if continuing to improve Tele overnight noted 4beat NSVT around 6am Hypophosphatemic today. Replete and monitor JOCY Unknown baseline, but elevated creatinine 1.53 Mostly due to poor oral intake Received IV fluid Creatinine improved to 0.98 Continue monitor BMP HTN BP stable Resume home lisinopril tomorrow DVT prophylaxis: Lovenox twice daily Dispo: PCU Full code PCP: [place] patient Possible dc tomorrow Admission and Anticipated Discharge Date Admission Date: June 04, 2021 Subjective 55-year-old male with significant past medical history of asthma and hypertension who presents to ED secondary to worsening shortness of breath Being managed for acute hypoxic respiratory failure due to COVID-19 pneumonia. Patient seen and examined today. Reports continuing improvement in symptoms with respect to cough and shortness of breath Denies any chest pain, palpitations. Denies any nausea, vomiting, abdominal pain, diarrhea. Denies any dysuria, frequency, urgency Physical Exam Constitutional: + well hydrated; no acute distress Eyes: PERRL, conjunctivae normal, anicteric sclerae ENMT: external ear and nose normal, oropharynx normal Respiratory: On nasal cannula at 4l/min CTA b/l Cardiovascular: Rate/Rhythm: regular rate and regular rhythm S1 S2 Gastrointestinal (Abdomen): normal bowel sounds, soft, nontender, no hepatosplenomegaly Musculoskeletal: no cyanosis or clubbing, extremities motor strength 5/5 Neurologic: PERRL, EOMI, accommodation nl, no face palsy, no dysarthria Psychiatric: A+Ox3, euthymic affect Results & Data Results & Data ([facility]) Vital Signs (Past 12 Hours) Vital Signs Temp Pulse Pulse Pulse Resp BP BP 06/07/21 12:57 06/07/21 11:26 36.6 C 96 H 18 114/78 06/07/21 11:19 83 18 06/07/21 07:57 83 20 06/07/21 07:25 36.6 C 81 20 126/75 06/07/21 04:20 36.9 C 67 18 122/70 06/07/21 02:08 78 32 H Pulse Ox 06/07/21 12:57 92 06/07/21 11:26 92 06/07/21 11:19 91 06/07/21 07:57 89 L 06/07/21 07:25 92 06/07/21 04:20 90 06/07/21 02:08 91 Laboratory Results Abnormal lab results 06/07/21 06/07/21 Range/Units 06:46 06:46 WBC 12.66 H (4.8-10.8) K/uL Chloride 109 H (98-107) mmol/L Glucose 123 H (70-99) mg/dl Calcium 8.2 L (8.5-10.1) mg/dl Magnesium 2.6 H (1.8-2.4) mg/dl C-Reactive Protein 6.30 H (0-0.29) mg/dl (1) Asthma Asthma complication type: unspecified Asthma persistence: unspecified Asthma severity: moderate Qualified Code(s): J45.909 - Unspecified asthma, uncomplicated
[2021-06-08] MEDS: ENOXAPARIN INJ 40 MG/0.4 ML SYR SQ SCH (04:11)
[2021-06-08 07:06] LABS: BUN Creatinine Ratio 18.3 (10-20); Calcium 8.1 mg/dl (8.5-10.1); Creatinine Clr Calc Pharmacy 104.1 ml/min; Est GFR (African American) 91.8 ml/min; Est GFR (Non-African American) 79.2 ml/min; Potassium 3.9 mmol/L (3.5-5.1)
[2021-06-08] MEDS: ALBUTEROL HFA 8 GM INHALER INH SCH ×2 (08:27→11:20)
[2021-06-08] MEDS ORDERED: lisinopril 40 MG TAB PO SCH (09:00)
[2021-06-08] MEDS: dexAMETHasone 6 MG in SYRINGE 0 ML IV SCH (09:47)
[2021-06-08] MEDS: FLUTICASONE/VILANTEROL 200/25MCG 14 PUFFS/INHALER INH SCH (09:48)
[2021-06-08] MEDS: ATORVASTATIN 10 MG TAB PO SCH (09:49)
[2021-06-08] MEDS: BENZONATATE 100 MG CAPSULE PO SCH (09:49)
[2021-06-08] MEDS: PANTOprazole 40 MG TAB PO SCH (09:49)
[2021-06-08] MEDS: CETIRIZINE HCL 10 MG TABLET PO SCH (09:49)
--- NOTE | 2021-06-08 11:26 | Discharge Summary ---
Date of Service June 08, 2021 Admission HPI Per Admitting Provider This is a 55-year-old male with significant past medical history of asthma and hypertension who presents to ED secondary to worsening shortness of breath over the last several days and found to be hypoxic at work. Patient initially was diagnosed with Covid 1 week ago. His symptoms however started 12 days ago. He is currently complaining of productive cough of purulent sputum, chills, sweats, shortness of breath, difficulty taking a deep breath, CINTRON, nausea, daily diarrhea and poor intake. He has known sick contacts with family members at home. He is unvaccinated. He denies fever, lightheadedness, dizziness, syncope, chest pain, hemoptysis, emesis, abdominal pain, dysuria, increased urinary frequency with urination, melena or hematochezia. He was to return to work today as his quarantine ended, and when he returned to work he was complaining of shortness of breath, his oxygen level was obtained and found to be hypoxic. He was referred to ED. In ED patient was hypoxic requiring 4 L of oxygen via nasal cannula.His chest x-ray was consistent with moderate multifocal bilateral airspace opacities suggestive of viral pneumonia. His lab work was consistent with JOCY and elevation in creatinine of 1.53. He did receive 6 mg IV dexamethasone as well as 1 L of IV fluid. He currently feels improved since initial presentation; however, is dyspneic even with conversation. Admission Exam Per Admitting Provider Constitutional: WD/WN, vitals as above, NAD, sitting up in bed, pleasant, dyspneic with conversation Head: Normocephalic, Atraumatic Eyes: PERRL, conjunctivae normal, anicteric sclerae ENMT: external ear and nose normal, oropharynx normal Neck: trachea midline, no thyromegaly normal visual inspection Respiratory: normal respiratory effort, no accessory muscle use, 4 years O2 via nasal cannula, harsh cough noted, dyspneic with conversation Cardiovascular: RRR telemetry, no edema Vessels: no JVD or carotid bruit Chest: normal inspection of chest Abdomen: normal bowel sounds, soft, nontender, no hepatosplenomegaly Musculoskeletal: no cyanosis or clubbing, extremities motor strength 5/5 Skin: no rashes, warm and dry normal turgor Neurologic: PERRL, EOMI, accommodation nl, no face palsy, no dysarthria CN's II-XI intact bilaterally and moves all extremities Psychiatric: A+Ox3, euthymic affect Lymphatic: no cervical or axillary lymphadenopathy : deferred Principal Diagnosis Acute hypoxic respiratory failure due to COVID-19 pneumonia Discharge Exam Constitutional + well hydrated; no acute distress Eyes PERRL, conjunctivae normal, anicteric sclerae ENMT external ear and nose normal, oropharynx normal Respiratory On nasal cannula CTA b/l. No crackles Cardiovascular Rate/Rhythm: regular rate and regular rhythm S1 S2 Gastrointestinal (Abdomen) normal bowel sounds, soft, nontender, no hepatosplenomegaly Musculoskeletal no cyanosis or clubbing, extremities motor strength 5/5 Neurologic PERRL, EOMI, accommodation nl, no face palsy, no dysarthria Psychiatric A+Ox3, euthymic affect Discharge Data Allergies Allergy/AdvReac Type Severity Reaction Status Date / Time shellfish derived Allergy Mild difficulty Verified 06/04/21 09:29 breathing Consultations 06/04/21 10:39 ED Decision to Admit Stat Hospital Course (1) Hypoxia: (2) Pneumonia due to COVID-19 virus: (3) Asthma: (4) HTN (hypertension): Pneumonia due to COVID-19 Acute respiratory failure with hypoxia in setting of COVID19 pneumonia Presented on admission with worsening shortness of breath His symptom has been going on for almost 2 weeks and was tested positive for COVID-19 about a week prior to presentation Unvaccinated for COVID-19 Chest x-ray showed moderate multifocal bilateral airspace opacities suggestive of viral pneumonia. Was treated with dexamethasone 6 mg daily He does not meet criteria for remdesivir secondary to duration of symptoms Was managed with self proning, incentive spirometry and flutter Patient insists on being discharged today 2 step yesterday show oxygen requirement at 2l/min at rest and 4l/min with activity. Discharged on oxygen Provided COVID 19 education Patient advised to monitor pulse ox at home and to continue incentive spirometry/flutter at home/self proning JOCY Unknown baseline, but elevated creatinine 1.53 Mostly due to poor oral intake Received IV fluid Creatinine improved to 1.06 HTN BP stable Continue home lisinopril tomorrow Total Time Total Time Spent Total Time Spent (In Minutes): 50 Total Time Includes: Examination of the Patient, Discharge Planning and Medication Reconciliation Discharge Plan Discharge Items Patient Disposition: Home - Self-Care Reason For Visit: COVID PNA Discharge Diagnosis: Acute hypoxic respiratory failure due to COVID-19 pneumonia Activity: Resume your previous activity Non-emergency contact: Primary Care Provider Call non-emergency contact if: you have any medication questions and your symptoms worsen Follow-up/Referrals: Elian Hanson MD [Primary Care Provider] - Diet: Heart Healthy Alan Attending Provider Instructions: Mr Dozier You came to the hospital complaining of cough and shortness of breath. You were evaluated and found to have COVID-19 pneumonia. You were started on treatment. Your symptoms improved significantly. You were requiring oxygen. You are being discharged on oxygen at 2 L at rest and increased to 4 L with activity. Pelase follow home isolation instructions and home monitoring as we discussed Please ensure follow-up with your primary doctor. 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 It is caused by a coronavirus called 2019 novel coronavirus (2019- nCoV). There are many types of coronavirus. Coronaviruses are a very common cause of bronchitis. They may sometimes cause lung infection(pneumonia). Symptoms can range from mild to severe respiratory illness. These viruses are also foundin some animals. COVID-19 was first found in people in [facility], in late 2019. In 2020, several cases of COVID-19 have been confirmed in the [place] Public health officials are working to find the source. How the virus spreads is not yet fully known. It may be spread through droplets of fluid that a person coughs or sneezes into the air. It may be spread if you touch a surface with virus on it, such as a handle or object, and then touch your mouth. What are the symptoms of COVID-19? Some people have no symptoms or mild symptoms. Symptoms may appear 2 to 14 days after contact with the virus. Symptoms can include: Fever Coughing Trouble breathing What are possible complications from COVID-19? In many cases, this virus can cause infection (pneumonia) in both lungs. In some cases, this can cause . How is COVID-19 diagnosed? Your healthcare provider will ask about your symptoms. He or she will also ask about your recent travel and contact with sick people. Testing for the virus is only done through the CDC. If yourhealthcare provider thinks you may have COVID-19, he or she will work with your local health department and the CDC on testing. Follow all instructions from your healthcare provider. COVID-19 is diagnosed by: Nasal and throat swab. A cotton-tipped swab is wiped inside your nose or throat. This is done to check for viruses in your nasal mucus. Sputum culture. A small sample of mucus coughed from your lungs (sputum) is collected if you have a cough. It is checked for the virus. How is COVID-19 treated? There is currently no medicine to treat the virus. Treatment is done to help your body while it fights the virus. This is known as supportive care. Supportive care may include: Pain medicine. These include acetaminophen and ibuprofen. They are used to help ease pain and reduce fever. Bed rest. This helps your body fight the illness. For severe illness, you may need to stay in the hospital. Care during severe illness may include: IV (intravenous) fluids.These are given through a vein to help keep your body hydrated. Oxygen. Supplemental oxygen or ventilation with a breathing machine (ventilator) may be given. This is done to keep enough oxygen in your body. Are you at risk for COVID-19? If youve been to a place where people have been sick with this virus, you are at risk for infection. You are at risk if you: Recently traveled to an affected area Had contact with a sick person who recently traveled to this area Had contact with a person who was diagnosed with COVID-19 How can COVID-19 be prevented? There is no vaccine yet. The best prevention is to not have contact with the virus. The CDC advises that people should not travel to areas where there are COVID-19 outbreaks right now for any reason that is not urgent. To help prevent spreading the infection, wash your hands often, or use an alcohol-basedhand embosser operator. If you are in an area with COVID-19: Wash your hands often. Or use an alcohol-based hand embosser operator often. Only touch your eyes, nose, or mouth with clean hands. Dont have contact with people who are sick. Follow local instructions about being in public. For example, you may be told to not use public transport for a period of time. Stay away from markets that have live or animals. Wash your hands after touching any animals. Don't touch animals that may be sick. Dont share eating or drinking tools with sick people. Dont kiss someone who is sick. Clean surfaces often with disinfectant. If you were in an area with COVID-19 in the last 14 days: Call your healthcare provider. He or she can talk with local health staff to see what action may be needed. Follow all instructions from your provider. Take your temperature every morning and evening for at least 14 days. This is to check for fever. Keep a record of the readings. Keep watch for symptoms of the virus. Tell your provider right away if you have symptoms. If you were in an area with COVID-19 and have a fever or other symptoms: Dont panic. Keep in mind that other illnesses can cause similar symptoms. Stay away from work, school, and public places. Limit physical contact with family members. Don't kiss anyone or share eating or drinking utensils. Clean surfaces you touch with disinfectant. This is to help prevent the virus from spreading. Call your healthcare provider. Explain that you have been exposed to COVID-19 and have symptoms. Do this before going to any hospital. Wait for instructions. Keep in mind that healthcare staff may wear protective equipment such as masks, gowns, gloves, and eye protection. You may be put in a separate room. This is to prevent the possible virus from spreading. Tell the healthcare staff about recent travel. This includes local travel on public transport. Staff may need to find other people you have been in contact with. Follow all instructions the healthcare staff give you. If you have been diagnosed with COVID-19 Follow all instructions from your healthcare provider. Dont leave your home, except to get medical care. Call your healthcare providers office before going. They can prepare and give you instructions. This will help prevent the virus from spreading. Dont go to work, school, or public areas. Dont use public transport or taxis. Stay away from other people in your home. Have them wear face masks around you. Dont share household items or food. Wear a face mask if you can. This includes at home or in a medical facility. Cover your face with a tissue when you cough or sneeze. Throw the tissue away. Wash your hands. Wash your hands often. Caregivers should: Follow all instructions from healthcare staff. Wear a face mask and protective clothing as advised. Wash hands often. Keep track of the sick persons symptoms. Clean surfaces, fabrics, and laundry thoroughly. Keep other people away from the sick person. When to call your healthcare provider Call your healthcare provider: If youve recently traveled and have symptoms If you have been diagnosed with COVID-19 and your symptoms are worse To learn more To find out more about COVID-19, visit the CDC website at www.cdc.gov/coronavirus/2019-ncov/index.html. [employer]. [address] [place] [address]. All rights reserved. This information is not intended as a substitute for professional medical care. Always follow your healthcare professional's instructions. This information has been adapted from [employer] Pending Studies at Discharge: No Stand-Alone Forms: My [facility] [employer], Smoking Cessation Medications and DC Order Prescriptions: New codeine-guaifenesin 10-100 mg/5 mL Liquid 10 ml PO Q6H PRN (Reason: cough) Qty: 120 RF: 0 Continued omeprazole 20 mg capsule,delayed release(DR/EC) 20 mg PO DAILY RF: 0 Symbicort 160-4.5 mcg/actuation HFA aerosol inhaler 2 puffs INH BID RF: 0 Combivent Respimat 20-100 mcg/actuation mist 1 puffs INH Q6H RF: 0 cetirizine [Zyrtec] 10 mg tablet 10 mg PO DAILY RF: 0 albuterol sulfate [ProAir HFA] 90 mcg/actuation HFA aerosol inhaler 2 puff INHALATION Q4H PRN (Reason: Shortness Of Breath) RF: 0 lisinopril 40 mg tablet 40 mg PO DAILY RF: 0 atorvastatin 20 mg tablet 10 mg PO DAILY RF: 0 Discharge Orders: Discharge Order (Routine); Ordered 06/08/21 Ordered By: Danielle Winkler Admission Data Admit Date/Time: 06/04/21 12:05 Attending Provider: Danielle Winkler I. Admit Provider: Lizeth Otero Primary Care Provider: Elian Hanson Other Providers: Lizeth Otero Other Interventions: Discharge Summary Assessment (RN) Last Done: 06/08/21 11:59
== END 2021-06-08 12:36 | disposition home or self-care (01) | DRG 177 ==
LOC: ED 08:38 → SUATTDRO 12:05 → 2S 12:05